=== PATIENT | male | born 1995 | race Caucasian/White ===

== ENCOUNTER 2020-01-08 10:00 | Emergency (ER) | payer OTHER, SELFPAY ==
[2020-01-08 10:01] VITALS: BP 118/67; PULSE 51; RESP 16; TEMP 36.3; O2SAT 98; BMI 19.7
--- NOTE | 2020-01-08 10:16 | ED.VISSUMM ---
- ER Visit Summary Date of Service: 01/08/20 Chief Complaint: [Laceration left wrist] History of Present Illness: The patient is a 24 M [presents to the emergency department complaint of laceration to his left wrist that he sustained around 9:15 AM while at work today. 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 Patient is right-hand dominant. Patient unsure of his last tetanus.] Physical Examination: [Left wrist-patient has a 2.5 cm laceration that is somewhat vertical in orientation over the volar aspect of the radial left wrist. Only about 7 mm of the laceration opens up and gapes a little bit the other portion is mostly superficial abrasion. Patient has normal range of motion in flexion extension of all digits. He is neurovascular intact. He has normal sensation.] Test Results: None indicated [] Emergency Department Course and Treatment: [Patient was given options for repair including 1 suture versus Dermabond versus tape. I feel all 3 are good options. Patient chose to have Dermabond repair and clean dressing.] Treatment Plan: [Patient advised to follow-up with [facility] for wound check in 3 to 5 days. Patient advised to return if increasing pain, redness, swelling, purulent drainage, or condition should worsen anyway.] Disposition: [Discharged home in stable condition] Impression: [Laceration left wrist 2.5 cm-Dermabond repair] This note was generated with [employer] dictation software. It may contain incorrect words, spelling, and punctuation that were not noted in review of the chart prior to signing ED Disposition - Plan for ED Patient: Referrals: Reanna Issa MD [Primary Care Provider] -
--- NOTE | 2020-01-08 10:19 | DCINST.ED_ITS ---
ED Disposition - Plan for ED Patient: Instructions: ED Laceration Ext Skin Glue Referrals: Reanna Issa MD [Primary Care Provider] - [facility], [place] [GROUP OF PHYSICIANS] - 3-5 Days
[2020-01-08] MEDS: Diphth,Pertuss(Acell),Tet Vac 0.5 ML Vial IM (11:00)
--- NOTE | 2020-01-08 11:01 | ED.RN ---
scanner and keyboard not working in room. 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
[2020-01-08 11:02] VITALS: PULSE 58; RESP 17; O2SAT 99
== END 2020-01-08 11:04 | disposition home or self-care (01) ==
PROVIDERS: Emergency Provider Emergency Medicine; PCP Pediatrics
DX: S61.512A Laceration without foreign body of left wrist, initial encounter (principal); W27.8XXA Contact with other nonpowered hand tool, initial encounter; Y93.9 Activity, unspecified; Y92.89 Other specified places as the place of occurrence of the external cause; Y99.0 Civilian activity done for income or pay; Z23 Encounter for immunization
CPT/HCPCS: 12001; 90715; 99283